=== PATIENT | female | born 1985 | race Caucasian/White ===

== ENCOUNTER 2017-09-21 15:08 | Emergency (ER) | payer OTHER, MEDICAID ==
[~2017-09-21] VITALS: Ht 167.6 cm; Wt 81.7 kg
[~2017-09-21 15:08] MED LIST: DOXYCYCLINE 10100 M1 PO; KEFLEX500 MG PO
[2017-09-21] MEDS ORDERED: IBUPROFEN 800800 M1 PO (16:01)
[2017-09-21] MEDS ORDERED: VIBRAMYCIN 100100 M2 PO (16:01)
[2017-09-21 16:11] VITALS: BP 130/81
== END 2017-09-21 16:13 | disposition home or self-care (01) ==
LOC: M.ERS 15:08
DX: L03.311 Cellulitis of abdominal wall (principal); Z88.2 Allergy status to sulfonamides; Z91.040 Latex allergy status

== ENCOUNTER 2017-09-21 22:45 | Emergency (ER) | payer MEDICAID, OTHER ==
[~2017-09-21] VITALS: Ht 167.6 cm; Wt 77.1 kg
[~2017-09-21 22:45] MED LIST changes: +IBUPROFEN 800800 M1 PO; +VIBRAMYCIN 100100 M2 PO
[2017-09-22 00:36] VITALS: BP 124/67
== END 2017-09-22 00:37 | disposition home or self-care (01) ==
LOC: M.ERS 22:45
DX: L03.311 Cellulitis of abdominal wall (principal); Z91.040 Latex allergy status; Z88.2 Allergy status to sulfonamides